=== PATIENT | male | born 1955 | race Caucasian/White ===

== ENCOUNTER 2021-11-13 02:14 | Observation (INO) ==
[2021-11-13] MEDS ORDERED: methylPREDNISolone 125 mg 2 ML VIAL IV ONE (02:27)
[2021-11-13] MEDS ORDERED: Albuterol 0.5% CONC CONTINUOUS NEB.SOL 5 mg/ml 20 ml BOT INH ONE (02:27)
[2021-11-13 03:00] LABS: ABS Basophils 0.1 10^3/ul (0-0.2); ABS Eosinophils 0.6 10^3/ul (0-0.6); ABS Lymphocytes 2.4 10^3/ul (1.0-4.8); ABS Monocytes 0.6 10^3/ul (0-0.8); ABS Neutrophils 2.2 10^3/ul (1.5-7.7); Eosinophil % 10.1 %; Hematocrit 46 % (42-52); Hemoglobin 15.9 g/dL (14.0-18.0); Lymphocyte % 41.5 %; Mean Corpuscular HGB Conc 34 g/dL (31-36); Mean Corpuscular Hemoglobin 32 pg (27-31); Mean Corpuscular Volume 92 fL (80-94); Mean Platelet Volume 7.6 fL (7.4-10.4); Platelet Count 226 10^3/uL (150-450); Red Blood Count 5.03 10^6 /uL (4.18-5.48); Red Cell Distribution Width 14 % (10-15); White Blood Count 5.9 10^3/uL (3.5-10.8)
[2021-11-13 03:20] LABS: PCO2 Arterial 56 mmHg (35-45); PO2 Arterial 80 mmHg (80-100)
[2021-11-13 03:22] LABS: Albumin 4.4 g/dL (3.2-5.2); Albumin/Globulin Ratio 1.6 (1-3); Calcium 8.6 mg/dL (8.6-10.3); Globulin 2.7 g/dL (2-4); Potassium 4.1 mmol/L (3.5-5.0); Total Bilirubin 0.4 mg/dL (0.2-1.0); Total Protein 7.1 g/dL (6.4-8.9); eGFR CKD-EPI 96.4 (>60)
[2021-11-13] MEDS ORDERED: Albuterol HFA INHALER 8 gm MDI INH PRN (04:54)
[2021-11-13] MEDS ORDERED: Mometasone/Formoter 200/5 MDI INH SCH (07:00)
[2021-11-13] MEDS: Enoxaparin 40 MG/0.4 ML SYR SUBCUT SCH (09:51)
[2021-11-13] MEDS: Nicotine PATCH 14 MG/24 HR PATCH TRANSDERM SCH (13:51)
[2021-11-13] MEDS ORDERED: Polyethylene Glycol 3350 17 GM PACKET PO ONE (17:11)
[2021-11-13] MEDS: Mometasone/Formoter 100/5 MDI INH SCH (19:23)
[2021-11-13] MEDS ORDERED: Al Hydrox/Mg Hydrox/Simet LIQ 30 ML UDC PO PRN (20:55)
[2021-11-13 22:49] LABS: High Sensitivity Troponin 1 Hr 17 pg/mL (<20)
[2021-11-13] MEDS ORDERED: Ondansetron ODT 4 mg TAB 4 MG TAB SL PRN (22:53)
[2021-11-14] MEDS: SPIRIVA Respimat (tiotropium) 2.5 mcg/inh Inhaler INH SCH (08:01)
[2021-11-14] MEDS: Mometasone/Formoter 100/5 MDI INH SCH ×2 (08:05→20:40)
[2021-11-14 09:02] LABS: ABS Eosinophils 0.1 10^3/ul (0-0.6); ABS Lymphocytes 2.4 10^3/ul (1.0-4.8); ABS Monocytes 0.7 10^3/ul (0-0.8); ABS Neutrophils 9.1 10^3/ul (1.5-7.7); Eosinophil % 0.8 %; Hematocrit 43 % (42-52); Hemoglobin 14.4 g/dL (14.0-18.0); Lymphocyte % 19.5 %; Mean Corpuscular HGB Conc 34 g/dL (31-36); Mean Corpuscular Hemoglobin 31 pg (27-31); Mean Corpuscular Volume 93 fL (80-94); Mean Platelet Volume 7.6 fL (7.4-10.4); Platelet Count 211 10^3/uL (150-450); Red Blood Count 4.61 10^6 /uL (4.18-5.48); Red Cell Distribution Width 14 % (10-15); White Blood Count 12.3 10^3/uL (3.5-10.8)
[2021-11-14 09:33] LABS: Calcium 8.7 mg/dL (8.6-10.3); Potassium 4.1 mmol/L (3.5-5.0); eGFR CKD-EPI 101.7 (>60)
[2021-11-14] MEDS: Enoxaparin 40 MG/0.4 ML SYR SUBCUT SCH (09:57)
[2021-11-14] MEDS: Nicotine PATCH 14 MG/24 HR PATCH TRANSDERM SCH (09:58)
[2021-11-15] MEDS: Nicotine PATCH 14 MG/24 HR PATCH TRANSDERM SCH (08:38)
[2021-11-15] MEDS: Enoxaparin 40 MG/0.4 ML SYR SUBCUT SCH (08:38)
[2021-11-15] MEDS: SPIRIVA Respimat (tiotropium) 2.5 mcg/inh Inhaler INH SCH (09:17)
[2021-11-15] MEDS: Mometasone/Formoter 100/5 MDI INH SCH ×2 (09:17→21:27)
[2021-11-15] MEDS: Albuterol/Ipratropium NEB.SOL (2.5/0.5 MG) 3 ML NEB.SOLN INH SCH ×3 (11:28→21:26)
[2021-11-15] MEDS ORDERED: Mometasone/Formoter 100/5 MDI INH SCH (13:00)
[2021-11-16] MEDS: Albuterol/Ipratropium NEB.SOL (2.5/0.5 MG) 3 ML NEB.SOLN INH SCH ×3 (02:26→12:31)
[2021-11-16] MEDS: Nicotine PATCH 14 MG/24 HR PATCH TRANSDERM SCH (07:47)
[2021-11-16] MEDS: Enoxaparin 40 MG/0.4 ML SYR SUBCUT SCH (07:47)
[2021-11-16] MEDS: Mometasone/Formoter 100/5 MDI INH SCH ×2 (08:30→20:53)
[2021-11-17] MEDS: Mometasone/Formoter 100/5 MDI INH SCH ×2 (09:06→20:25)
[2021-11-17] MEDS: Nicotine PATCH 14 MG/24 HR PATCH TRANSDERM SCH (09:14)
[2021-11-17] MEDS: Enoxaparin 40 MG/0.4 ML SYR SUBCUT SCH (09:15)
[2021-11-18] MEDS: Mometasone/Formoter 100/5 MDI INH SCH (08:13)
[2021-11-18] MEDS: Enoxaparin 40 MG/0.4 ML SYR SUBCUT SCH (08:41)
[2021-11-18] MEDS: Nicotine PATCH 14 MG/24 HR PATCH TRANSDERM SCH (08:42)
[2021-11-18 12:11] VITALS: BP 157/82
== END 2021-11-18 14:40 | disposition home or self-care (01) ==
LOC: ED 02:14 → SUATTDRO 04:45 → INTOOBSV 04:45 → EDHOLD 04:45 → MEDTELE 08:40
PROVIDERS: ADMIT Hospitalist; ATTEND Internal Medicine

== ENCOUNTER 2024-07-05 06:30 | Observation (INO) ==
[2024-07-05 07:16] LABS: Urine Appearance Turbid; Urine Bilirubin Negative (Negative); Urine Blood 2+ (Negative); Urine Color Light-Yellow; Urine Glucose Negative (Negative); Urine Ketones Negative (Negative); Urine Nitrite 1+ (Negative); Urine Protein 1+ (>=30 mg/dL) (Negative); Urine Specific Gravity 1.009 (1.002-1.030); Urine Urobilinogen Negative (Negative)
[2024-07-05] MEDS: Ondansetron 4 mg VIAL 2 MG/ML 2 ml VIAL IV ONE (07:29)
[2024-07-05] MEDS: Morphine 2 MG/ML SYRINGE IV ONE (07:29)
[2024-07-05] MEDS: Lactated Ringers 1000 ml BAG 1,000 ML IV ONE ×2 (07:30→08:09)
[2024-07-05 07:49] LABS: ABS Basophils 0.1 10^3/uL (0.0-0.1); ABS Eosinophils 0.1 10^3/uL (0.0-0.5); ABS Lymphocytes 1.7 10^3/uL (1.0-4.8); ABS Monocytes 0.3 10^3/uL (0.0-1.1); ABS Neutrophils 4.5 10^3/uL (1.5-7.6); ABS Nucleated RBC 0.01 10^3/ul; Eosinophil % 1.6 %; Hematocrit 45.6 % (38-53); Hemoglobin 15.9 g/dL (13.2-16.3); Lymphocyte % 25.6 %; Mean Corpuscular Hemoglobin 31.9 pg (27-33); Mean Corpuscular Volume 91.1 fL (80-97); Mean Platelet Volume 8.1 fL (7.5-11.2); Nucleated Red Blood Cells % 0.1 %/100WBC (0.0-0.8); Platelet Count 258 10^3/uL (150-450); Red Blood Count 5.01 10^6/uL (4.06-5.63); Red Cell Distribution Width 12.7 % (12-17); White Blood Count 6.8 10^3/uL (3.6-10.2)
[2024-07-05 08:19] LABS: Albumin 4.4 g/dL (3.2-5.2); Albumin/Globulin Ratio 1.9 (1-3); C Reactive Protein 4.16 mg/L (<8.01); Calcium 9.4 mg/dL (8.6-10.3); Creatinine, Serum 0.83 mg/dL (0.67-1.17); Globulin 2.3 g/dL (2-4); Magnesium 1.8 mg/dL (1.9-2.7); Total Bilirubin 0.3 mg/dL (0.2-1.0); Total Protein 6.7 g/dL (6.4-8.9); eGFR CKD-EPI 94.2 (>60)
[2024-07-05] MEDS: Iohexol 350 (CONTRAST) 500 ML MDV IV ONE (08:56)
[2024-07-05 08:59] LABS: High Sensitivity Troponin 1 Hr 12 pg/mL (<20)
[2024-07-05 09:00] LABS: Urine Bacteria 1+ /HPF (Absent); Urine Red Blood Cell 1+(3-5/hpf) /HPF (0-Trace); Urine White Blood Cell 3+(>20/hpf) /HPF (0-Trace)
[2024-07-05] MEDS: Magnesium Sulfate 2 gm BAG 2 GM/50 ML BAG IVPB ONE (09:08)
[2024-07-05] MEDS: Azithromycin 500 mg/250 ml NS 500 MG/250 ML BAG IVPB ONE (10:15)
[2024-07-05] MEDS ORDERED: Ondansetron 4 mg VIAL 2 MG/ML 2 ml VIAL IV PRN (12:41)
[2024-07-05] MEDS: Polyethylene Glycol 3350 17 GM PACKET PO SCH (13:51)
[2024-07-05] MEDS: Enoxaparin 40 MG/0.4 ML SYR SUBCUT SCH (13:51)
[2024-07-05] MEDS: NS 0.9% 1000 ml BAG 1,000 ML IV SCH (16:05)
[2024-07-05] MEDS: Amoxicillin/Clavul 875/125 TAB (Augmentin 875 tab) PO SCH (16:06)
[2024-07-05 18:05] LABS: ABS Eosinophils 0.2 10^3/uL (0.0-0.5); ABS Lymphocytes 1.4 10^3/uL (1.0-4.8); ABS Monocytes 0.4 10^3/uL (0.0-1.1); ABS Neutrophils 4.2 10^3/uL (1.5-7.6); ABS Nucleated RBC 0.01 10^3/ul; Eosinophil % 2.6 %; Hematocrit 41.1 % (38-53); Hemoglobin 14.2 g/dL (13.2-16.3); Mean Corpuscular Hemoglobin 31.3 pg (27-33); Mean Corpuscular Hgb Conc 34.5 g/dL (31-36); Mean Corpuscular Volume 90.6 fL (80-97); Mean Platelet Volume 7.9 fL (7.5-11.2); Nucleated Red Blood Cells % 0.1 %/100WBC (0.0-0.8); Platelet Count 220 10^3/uL (150-450); Red Blood Count 4.54 10^6/uL (4.06-5.63); Red Cell Distribution Width 12.7 % (12-17); White Blood Count 6.1 10^3/uL (3.6-10.2)
[2024-07-05] MEDS: Nicotine PATCH 7 MG/24 HR PATCH TRANSDERM SCH (20:12)
[2024-07-05] MEDS: Heparin 5000 UNITS/ML 1 mL VIAL SUBCUT SCH (20:12)
[2024-07-05] MEDS: Senna TAB 8.6 mg TAB PO SCH (20:12)
[2024-07-06 06:35] LABS: ABS Lymphocytes 1.6 10^3/uL (1.0-4.8); ABS Monocytes 0.3 10^3/uL (0.0-1.1); ABS Neutrophils 3.6 10^3/uL (1.5-7.6); Eosinophil % 0.1 %; Hematocrit 41.1 % (38-53); Hemoglobin 14.2 g/dL (13.2-16.3); Lymphocyte % 28.6 %; Mean Corpuscular Hemoglobin 31.6 pg (27-33); Mean Corpuscular Hgb Conc 34.6 g/dL (31-36); Mean Corpuscular Volume 91.4 fL (80-97); Mean Platelet Volume 8.2 fL (7.5-11.2); Platelet Count 212 10^3/uL (150-450); Red Cell Distribution Width 12.7 % (12-17); White Blood Count 5.5 10^3/uL (3.6-10.2)
[2024-07-06 06:47] LABS: Calcium 8.3 mg/dL (8.6-10.3); Creatinine, Serum 0.72 mg/dL (0.67-1.17); Potassium 4.5 mmol/L (3.5-5.0); eGFR CKD-EPI 98.3 (>60)
[2024-07-06] MEDS: Azithromycin 500 mg/250 ml NS 500 MG/250 ML BAG IVPB SCH (09:25)
[2024-07-06] MEDS ORDERED: Zosyn per Pharmacy NOTE FOLLOW UP SCH (16:00)
[2024-07-06] MEDS: ZOSYN 3.375 GM x ONE DOSE over 30 miuntes IV (17:29)
[2024-07-06] MEDS: ZOSYN 3.375 GM Q8H per EXTENDED INFUSION IV SCH (22:57)
[2024-07-07] MEDS: cefTRIAXone 1 gm/50 mL D5W 1 GM/50 ML BAG IV SCH (12:40)
[2024-07-08 05:55] VITALS: BP 179/93
== END 2024-07-08 09:00 | disposition home or self-care (01) ==
LOC: EDHOLD 06:30 → ED 06:30 → SUATTDRO 12:41 → MED 14:13 → MEDTELE 14:15 → MED 07-06 16:30
PROVIDERS: ADMIT Student in an Organized Health Care Education/Training Program; ATTEND Internal Medicine